=== PATIENT | male | born 1970 | race Caucasian/White ===

== ENCOUNTER 2021-07-13 13:54 | Outpatient (CLI) | payer BC ==
[2021-07-13 15:47] LABS: #Basophils 0.1 10x3/uL (0.0-0.2); #Eosinphils 0.2 10x3/uL (0.0-0.5); #Monocytes 0.5 10x3/uL (0.0-1.1); #Neutrophils 2.7 10x3/uL (1.5-8.4); %Basophils 1.3 % (0.0-2.0); %Lymphocytes 34.9 % (18.0-47.0); %Monocytes 9.2 % (0.0-10.0); %Neutrophils 50.2 % (40.0-75.0); Hemoglobin 14.4 g/dL (13.5-17.5); Mean Corpuscular HGB CONC 32.2 g/dL (32.0-36.0); Mean Corpuscular Hemoglobin 28.5 pg (27.0-33.0); Mean Corpuscular Volume 88.3 fl (81.2-95.1); Platelet Count 232 10x3/uL (150-450); RBC Distribution Width 12.8 % (11.5-14.5); Red Blood Cell (RBC) Count 5.06 10x6/uL (4.32-5.72); White Blood Cell (WBC) Count 5.5 10x3/uL (3.5-10.5)
[2021-07-13 16:16] LABS: INR-International Normal Ratio 0.9; Prothrombin Time 10.3 sec (9.5-12.1)
[2021-07-13 16:21] LABS: Anion Gap 17 mmol/L (10-20); BUN (Urea Nitrogen) 21 mg/dL (8.4-25.7); CRP (Inflammatory) 2.33 mg/dL (= or < 0.5); Calc. Creatinine Clearance 0 mL/min (70-130); Calcium 9.7 mg/dL (7.8-10.44); Carbon Dioxide 26 mmol/L (22-29); Chloride 99 mmol/L (98-107); Glucose 300 mg/dL (70-105); Potassium 4.6 mmol/L (3.5-5.1); Sodium 137 mmol/L (136-145)
[2021-07-13 22:29] LABS: SARS-CoV-2 PCR by NAA Not Detected (NotDetected)
== END 2021-07-13 13:55 | disposition home or self-care (01) ==
LOC: LABBT 13:54
PROVIDERS: ATTEND Orthopaedic Surgery
DX: Z01.818 Encounter for other preprocedural examination (principal); T84.53XA Infection and inflammatory reaction due to internal right knee prosthesis, initial encounter; Z20.822 Contact with and (suspected) exposure to COVID-19
CPT/HCPCS: 80048; 85025; 85610; 86140; 93005; 93010; U0003; U0005

== ENCOUNTER 2021-07-14 10:10 | Inpatient (IN) | payer BC ==
[2021-07-13 10:00] VITALS: BMI 40.0
[2021-07-14] MEDS ORDERED: Midazolam HCl 2 mg/2 ml Vial ONE ×2 (10:39→11:02)
[2021-07-14] MEDS ORDERED: Fentanyl 100 MCG/2 ML VIAL ONE ×6 (10:39→16:40)
[2021-07-14] MEDS ORDERED: Ondansetron PF 4 MG/2 ML Vial ONE ×2 (11:59→13:26)
[2021-07-14] MEDS ORDERED: Morphine 4 MG/ML VIAL ONE (11:59)
[2021-07-14] MEDS ORDERED: Heparin 1,000 UNITS/ML VIAL ONE (12:53)
[2021-07-14] MEDS ORDERED: Ondansetron PF 4 MG/2 ML Vial IVP PRN ×2 (12:54→14:15)
[2021-07-14] MEDS ORDERED: Acetaminophen 325 MG TAB PO PRN (12:54)
[2021-07-14] MEDS ORDERED: Fentanyl 100 MCG/2 ML VIAL SLOW IVP PRN (12:54)
[2021-07-14] MEDS ORDERED: HYDROcodone/Acetaminophen 10/325 mg Tablet PO PRN ×3 (12:54→14:15)
[2021-07-14] MEDS ORDERED: Zolpidem Tartrate 5 MG TAB PO PRN ×2 (12:54→14:15)
[2021-07-14] MEDS ORDERED: diphenhydrAMINE 25 MG CAP PO PRN (12:54)
[2021-07-14] MEDS ORDERED: Promethazine HCl 25 MG/ML VIAL IM PRN ×2 (12:54→14:15)
[2021-07-14] MEDS ORDERED: Nitroglycerin 0.4 MG TAB (25 Tab Bottle) SL PRN (13:00)
[2021-07-14] MEDS ORDERED: Senokot S 8.6-50 MG TAB PO PRN (13:00)
[2021-07-14] MEDS ORDERED: Tobramycin Sulfate 1.2 GM VIAL ONE (13:22)
[2021-07-14] MEDS ORDERED: Bupivacaine HCl 0.5%/Epinephrine 1:200,000/PF 30 ml Vial ONE (13:26)
[2021-07-14] MEDS ORDERED: Ketorolac Tromethamine 30 MG/ML VIAL ONE (13:26)
[2021-07-14] MEDS ORDERED: Dexamethasone 20 MG/5 ML VIAL ONE (13:26)
[2021-07-14] MEDS ORDERED: Lidocaine 1% PF 5 ML VIAL ONE (13:26)
[2021-07-14] MEDS ORDERED: diphenhydrAMINE 50 MG/ML VIAL ONE (13:26)
[2021-07-14] MEDS ORDERED: PROPOFOL 200 MG/20 ML VIAL ONE (13:26)
[2021-07-14] MEDS ORDERED: Bupivacaine PF 0.5% 30 ML VIAL ONE (13:58)
[2021-07-14] MEDS ORDERED: Mineral Oil Sterile 10 ML VIAL ONE (13:58)
[2021-07-14] MEDS ORDERED: Ketorolac Tromethamine 30 MG/ML VIAL IM SCH (14:00)
[2021-07-14] MEDS ORDERED: Ropivacaine HCl/PF 125 ML in Sodium Chloride 0.9% 125 ML NERVE BLCK SCH (14:15)
[2021-07-14] MEDS ORDERED: traMADol HCl 50 MG TAB PO PRN ×2 (14:15)
[2021-07-14] MEDS ORDERED: Ketorolac Tromethamine 30 MG/ML VIAL IVP PRN (14:15)
[2021-07-14] MEDS ORDERED: Ropivacaine HCl/PF 250 ML in Premix Bag 1 BAG NERVE BLCK SCH (14:15)
[2021-07-14] MEDS ORDERED: Meperidine HCl/PF 25 MG/ML VIAL SLOW IVP PRN (15:19)
[2021-07-14] MEDS ORDERED: Promethazine HCl 25 MG/ML VIAL IVPB PRN (15:19)
[2021-07-14] MEDS ORDERED: Ondansetron HCl/PF 4 MG/2 ML Vial IVP PRN (15:19)
[2021-07-14] MEDS ORDERED: HYDROmorphone 2 MG/ML VIAL SLOW IVP PRN (15:19)
[2021-07-14] MEDS ORDERED: Labetalol HCl 100 MG/20 ML VIAL ONE (15:54)
[2021-07-14] MEDS ORDERED: HYDROmorphone 2 MG/ML VIAL ONE (15:59)
[2021-07-14] MEDS: Rifampin 300 MG CAP PO SCH (21:06)
[2021-07-14] MEDS: Fentanyl 100 MCG/2 ML VIAL IV PRN (21:07)
[2021-07-14] MEDS: tiZANidine HCl 4 MG TAB PO PRN (21:07)
[2021-07-14] MEDS: HYDROcodone/Acetaminophen 10/325 mg Tablet PO PRN (21:08)
[2021-07-14] MEDS: Amlodipine 10 MG TAB PO SCH (21:09)
[2021-07-14] MEDS: ceFAZolin Sodium/D5W 2 GM in Premix Bag 1 BAG IVPB SCH (21:09)
[2021-07-14] MEDS: Rosuvastatin 20 MG TAB PO SCH (21:09)
[2021-07-14] MEDS: Aspirin 81 mg Enteric Coated Tablet PO SCH (21:09)
[2021-07-14] MEDS: Sodium Chloride 0.9% 1,000 ML IV SCH ×2 (23:10→23:11)
[2021-07-14] MEDS: metFORMIN 500 MG TAB PO SCH (23:11)
[2021-07-15] MEDS ORDERED: Vancomycin 1.5 GRAM/300 ML BAG 1.5 GM in Premix Bag 1 BAG IVPB SCH
[2021-07-15] MEDS ORDERED: Vancomycin HCl 1.5 GM in Sodium Chloride 0.9% 250 ML 300 ML IVPB SCH
[2021-07-15] MEDS: HYDROcodone/Acetaminophen 10/325 mg Tablet PO PRN ×2 (00:42→04:20)
[2021-07-15] MEDS: Fentanyl 100 MCG/2 ML VIAL IV PRN ×2 (00:58→03:55)
[2021-07-15] MEDS: Levothyroxine Sodium 112 MCG TAB PO SCH (04:20)
[2021-07-15] MEDS: Levothyroxine Sodium 25 MCG TAB PO SCH (04:20)
[2021-07-15] MEDS: tiZANidine HCl 4 MG TAB PO PRN (04:20)
[2021-07-15] MEDS: ceFAZolin Sodium/D5W 2 GM in Premix Bag 1 BAG IVPB SCH ×3 (04:29→20:56)
[2021-07-15] MEDS ORDERED: Morphine 4 MG/ML VIAL SLOW IVP SCH (04:30)
[2021-07-15 05:57] LABS: Hemoglobin 11.6 g/dL (14.0-18.0); Mean Corpuscular HGB CONC 33.4 g/dL (32.0-36.0); Mean Corpuscular Volume 89.9 fL (78.0-98.0); Mean Platelet Volume 7.8 fL (7.4-10.4); Platelet Count 149 thou/uL (130-400); RBC Distribution Width 12.9 % (11.5-14.5); Red Blood Cell (RBC) Count 3.85 mill/uL (4.70-6.10); White Blood Cell (WBC) Count 3.9 thou/uL (4.8-10.8)
[2021-07-15] MEDS ORDERED: Zolpidem Tartrate 5 MG TAB PO PRN (06:22)
[2021-07-15] MEDS ORDERED: diphenhydrAMINE 50 MG/ML VIAL IM PRN (06:22)
[2021-07-15] MEDS ORDERED: Promethazine HCl 25 MG/ML VIAL IM PRN (06:22)
[2021-07-15] MEDS ORDERED: Ondansetron PF 4 MG/2 ML Vial IVP PRN (06:22)
[2021-07-15] MEDS ORDERED: Morphine CADD 1 MG/ML CADD IVPB PRN (06:22)
[2021-07-15] MEDS ORDERED: Naloxone HCl 0.4 mg/ml Vial IV PRN (06:22)
[2021-07-15] MEDS ORDERED: diphenhydrAMINE 25 MG CAP PO PRN (06:22)
[2021-07-15] MEDS ORDERED: Communication Order-Pharmacy FS SCH (06:30)
[2021-07-15] MEDS ORDERED: Morphine Sulfate 100 MG in Dextrose 5% in Water 98 ML IV SCH (06:45)
[2021-07-15] MEDS ORDERED: Dextrose 50% Abboject 50 ML SYRINGE IVP PRN (07:00)
[2021-07-15] MEDS ORDERED: Dextrose 5% in Water 1,000 ML IV PRN ×2 (07:00→11:50)
[2021-07-15] MEDS: metFORMIN 500 MG TAB PO SCH ×2 (07:02→17:07)
[2021-07-15] MEDS: HumaLOG 300 UNITS/3 ML VIAL SC PRN ×2 (07:03→11:30)
[2021-07-15 08:11] LABS: Anion Gap 12 mmol/L (10-20); BUN (Urea Nitrogen) 14 mg/dL (8.4-25.7); CRP (Inflammatory) 6.19 mg/dL (= or < 0.5); Calc. Creatinine Clearance 183 mL/min (70-130); Calcium 8.6 mg/dL (7.8-10.44); Carbon Dioxide 27 mmol/L (22-29); Chloride 97 mmol/L (98-107); Glucose 350 mg/dL (70-105); Potassium 4.2 mmol/L (3.5-5.1); Sodium 132 mmol/L (136-145)
[2021-07-15] MEDS ORDERED: Aspirin 81 mg Enteric Coated Tablet PO SCH (09:00)
[2021-07-15] MEDS ORDERED: Venlafaxine HCl XR 150 MG CAP PO SCH (09:00)
[2021-07-15] MEDS ORDERED: oxyCODONE 5 MG TAB PO SCH (09:15)
[2021-07-15] MEDS: Atenolol 50 MG TAB PO SCH (10:44)
[2021-07-15] MEDS: Lisinopril 20 MG TAB PO SCH (10:47)
[2021-07-15] MEDS: Amlodipine 10 MG TAB PO SCH ×2 (10:47→20:58)
[2021-07-15] MEDS: Ferrous Gluconate 324 MG TAB PO SCH ×2 (10:48→20:56)
[2021-07-15] MEDS: Multivitamin W/ Minerals 1 TAB PO SCH (10:48)
[2021-07-15] MEDS: Glimepiride 4 MG TAB PO SCH (10:48)
[2021-07-15] MEDS: Venlafaxine HCl XR 150 MG CAP PO SCH (10:48)
[2021-07-15] MEDS: Aspirin 81 mg Enteric Coated Tablet PO SCH ×2 (10:48→20:56)
[2021-07-15] MEDS: Sodium Chloride 0.9% 1,000 ML IV SCH ×2 (10:49→20:57)
[2021-07-15] MEDS: Senokot S 8.6-50 MG TAB PO SCH ×2 (10:49→20:56)
[2021-07-15] MEDS: Rifampin 300 MG CAP PO SCH ×2 (11:29→20:56)
[2021-07-15] MEDS ORDERED: Dextrose 50% Abboject 50 ML SYRINGE SLOW IVP PRN (11:50)
[2021-07-15] MEDS: Ketorolac Tromethamine 30 MG/ML VIAL IVP SCH ×2 (17:07→20:55)
[2021-07-15] MEDS: Insulin Regular 300 UNITS/3 ML VIAL SC PRN ×2 (17:36→20:59)
[2021-07-15] MEDS: Rosuvastatin 20 MG TAB PO SCH (20:56)
[2021-07-16] MEDS: Ketorolac Tromethamine 30 MG/ML VIAL IVP SCH ×4 (03:36→21:15)
[2021-07-16] MEDS: tiZANidine HCl 4 MG TAB PO PRN (03:48)
[2021-07-16] MEDS: ceFAZolin Sodium/D5W 2 GM in Premix Bag 1 BAG IVPB SCH ×3 (05:20→21:18)
[2021-07-16 05:41] LABS: Hemoglobin 9.9 g/dL (14.0-18.0); Mean Corpuscular HGB CONC 33.5 g/dL (32.0-36.0); Mean Corpuscular Hemoglobin 30.1 pg (27.0-31.0); Mean Corpuscular Volume 89.8 fL (78.0-98.0); Platelet Count 141 thou/uL (130-400); RBC Distribution Width 12.7 % (11.5-14.5); White Blood Cell (WBC) Count 4.4 thou/uL (4.8-10.8)
[2021-07-16] MEDS: Sodium Chloride 0.9% 1,000 ML IV SCH ×2 (06:08→15:16)
[2021-07-16] MEDS: Levothyroxine Sodium 112 MCG TAB PO SCH (06:08)
[2021-07-16] MEDS: Levothyroxine Sodium 25 MCG TAB PO SCH (06:08)
[2021-07-16] MEDS: Insulin Regular 300 UNITS/3 ML VIAL SC PRN (06:36)
[2021-07-16] MEDS: diphenhydrAMINE 50 MG/ML VIAL IVP PRN (08:10)
[2021-07-16] MEDS: Aspirin 81 mg Enteric Coated Tablet PO SCH ×3 (09:23→21:17)
[2021-07-16] MEDS: Lisinopril 20 MG TAB PO SCH (09:23)
[2021-07-16] MEDS: Atenolol 50 MG TAB PO SCH (09:23)
[2021-07-16] MEDS: Amlodipine 10 MG TAB PO SCH ×2 (09:24→21:17)
[2021-07-16] MEDS: Ferrous Gluconate 324 MG TAB PO SCH ×2 (10:01→21:17)
[2021-07-16] MEDS: Multivitamin W/ Minerals 1 TAB PO SCH (10:01)
[2021-07-16] MEDS: Senokot S 8.6-50 MG TAB PO SCH ×2 (10:01→21:16)
[2021-07-16] MEDS: Rifampin 300 MG CAP PO SCH ×2 (12:09→22:37)
[2021-07-16] MEDS: Glimepiride 4 MG TAB PO SCH (12:09)
[2021-07-16] MEDS: metFORMIN 500 MG TAB PO SCH ×2 (12:09→16:03)
[2021-07-16] MEDS: Venlafaxine HCl XR 150 MG CAP PO SCH (12:09)
[2021-07-16] MEDS: oxyCODONE 5 MG TAB PO PRN ×3 (12:10→21:23)
[2021-07-16] MEDS: Lantus 1000 UNITS/10 ML VIAL SC SCH (21:17)
[2021-07-16] MEDS: Rosuvastatin 20 MG TAB PO SCH (21:17)
[2021-07-17] MEDS: Sodium Chloride 0.9% 1,000 ML IV SCH ×3 (01:25→21:56)
[2021-07-17] MEDS: ceFAZolin Sodium/D5W 2 GM in Premix Bag 1 BAG IVPB SCH ×3 (05:04→20:40)
[2021-07-17] MEDS: Ketorolac Tromethamine 30 MG/ML VIAL IVP SCH ×4 (05:04→21:56)
[2021-07-17 05:07] LABS: Hemoglobin 10.8 g/dL (14.0-18.0); Mean Corpuscular HGB CONC 34.1 g/dL (32.0-36.0); Mean Corpuscular Volume 88.1 fL (78.0-98.0); Mean Platelet Volume 8.5 fL (7.4-10.4); Platelet Count 134 thou/uL (130-400); RBC Distribution Width 12.6 % (11.5-14.5); Red Blood Cell (RBC) Count 3.58 mill/uL (4.70-6.10); White Blood Cell (WBC) Count 4.6 thou/uL (4.8-10.8)
[2021-07-17] MEDS: Levothyroxine Sodium 25 MCG TAB PO SCH (05:22)
[2021-07-17] MEDS: Levothyroxine Sodium 112 MCG TAB PO SCH (05:22)
[2021-07-17] MEDS: diphenhydrAMINE 50 MG/ML VIAL IVP PRN (08:25)
[2021-07-17] MEDS: Glimepiride 4 MG TAB PO SCH (08:30)
[2021-07-17] MEDS: Senokot S 8.6-50 MG TAB PO SCH ×2 (08:30→20:40)
[2021-07-17] MEDS: Rifampin 300 MG CAP PO SCH ×2 (08:30→20:39)
[2021-07-17] MEDS: Aspirin 81 mg Enteric Coated Tablet PO SCH ×2 (08:30→20:39)
[2021-07-17] MEDS: metFORMIN 500 MG TAB PO SCH ×2 (08:31→18:13)
[2021-07-17] MEDS: Atenolol 50 MG TAB PO SCH (08:31)
[2021-07-17] MEDS: Venlafaxine HCl XR 150 MG CAP PO SCH (08:32)
[2021-07-17] MEDS: Amlodipine 10 MG TAB PO SCH ×2 (08:32→20:39)
[2021-07-17] MEDS: Ferrous Gluconate 324 MG TAB PO SCH ×2 (08:32→20:39)
[2021-07-17] MEDS: Lisinopril 20 MG TAB PO SCH (08:32)
[2021-07-17] MEDS: Multivitamin W/ Minerals 1 TAB PO SCH (08:32)
[2021-07-17] MEDS: oxyCODONE 5 MG TAB PO PRN ×2 (14:16→21:55)
[2021-07-17] MEDS ORDERED: Ropivacaine HCl/PF 250 ML in Premix Bag 1 BAG NERVE BLCK SCH (15:15)
[2021-07-17] MEDS ORDERED: Ropivacaine HCl/PF 125 ML in Sodium Chloride 0.9% 125 ML NERVE BLCK SCH (15:15)
[2021-07-17] MEDS: tiZANidine HCl 4 MG TAB PO PRN (15:15)
[2021-07-17] MEDS: Insulin Regular 300 UNITS/3 ML VIAL SC PRN (18:13)
[2021-07-17] MEDS: Rosuvastatin 20 MG TAB PO SCH (20:40)
[2021-07-17] MEDS: Lantus 1000 UNITS/10 ML VIAL SC SCH (20:41)
[2021-07-18] MEDS: ceFAZolin Sodium/D5W 2 GM in Premix Bag 1 BAG IVPB SCH ×3 (04:54→21:16)
[2021-07-18] MEDS: Ketorolac Tromethamine 30 MG/ML VIAL IVP SCH ×4 (04:54→21:11)
[2021-07-18] MEDS: oxyCODONE 5 MG TAB PO PRN ×5 (04:55→21:14)
[2021-07-18] MEDS: Levothyroxine Sodium 112 MCG TAB PO SCH (04:55)
[2021-07-18] MEDS: Levothyroxine Sodium 25 MCG TAB PO SCH (04:56)
[2021-07-18] MEDS: Insulin Regular 300 UNITS/3 ML VIAL SC PRN ×2 (06:07→13:40)
[2021-07-18] MEDS ORDERED: Polyethylene Glycol 3350 17 GM Packet PO PRN (07:45)
[2021-07-18] MEDS: Sodium Chloride 0.9% 1,000 ML IV SCH ×2 (08:41→18:46)
[2021-07-18] MEDS: Atenolol 50 MG TAB PO SCH (08:42)
[2021-07-18] MEDS: Aspirin 81 mg Enteric Coated Tablet PO SCH ×2 (08:43→21:13)
[2021-07-18] MEDS: Lisinopril 20 MG TAB PO SCH (08:43)
[2021-07-18] MEDS: metFORMIN 500 MG TAB PO SCH ×2 (08:43→16:59)
[2021-07-18] MEDS: Venlafaxine HCl XR 150 MG CAP PO SCH (08:43)
[2021-07-18] MEDS: Amlodipine 10 MG TAB PO SCH ×2 (08:44→21:13)
[2021-07-18] MEDS: Glimepiride 4 MG TAB PO SCH (08:44)
[2021-07-18] MEDS: Ferrous Gluconate 324 MG TAB PO SCH ×2 (08:44→21:12)
[2021-07-18] MEDS: Senokot S 8.6-50 MG TAB PO SCH ×2 (08:44→21:13)
[2021-07-18] MEDS: Multivitamin W/ Minerals 1 TAB PO SCH (08:44)
[2021-07-18] MEDS: Rifampin 300 MG CAP PO SCH ×2 (08:45→21:12)
[2021-07-18] MEDS: Lantus 1000 UNITS/10 ML VIAL SC SCH ×2 (08:47→21:10)
[2021-07-18] MEDS: Rosuvastatin 20 MG TAB PO SCH (21:12)
[2021-07-18] MEDS: Cepastat Lozenges 1 LOZ PO PRN (21:13)
[2021-07-19] MEDS: Levothyroxine Sodium 25 MCG TAB PO SCH (05:02)
[2021-07-19] MEDS: Levothyroxine Sodium 112 MCG TAB PO SCH (05:02)
[2021-07-19] MEDS: Ketorolac Tromethamine 30 MG/ML VIAL IVP SCH ×4 (05:02→20:28)
[2021-07-19] MEDS: ceFAZolin Sodium/D5W 2 GM in Premix Bag 1 BAG IVPB SCH ×3 (05:03→20:26)
[2021-07-19] MEDS: Cepastat Lozenges 1 LOZ PO PRN (05:39)
[2021-07-19] MEDS: oxyCODONE 5 MG TAB PO PRN ×4 (05:39→20:27)
[2021-07-19] MEDS: Sodium Chloride 0.9% 1,000 ML IV SCH ×2 (06:03→17:05)
[2021-07-19] MEDS: Rifampin 300 MG CAP PO SCH ×2 (08:49→20:26)
[2021-07-19] MEDS: Lantus 1000 UNITS/10 ML VIAL SC SCH ×2 (08:50→20:26)
[2021-07-19] MEDS: Glimepiride 4 MG TAB PO SCH (08:50)
[2021-07-19] MEDS: metFORMIN 500 MG TAB PO SCH ×2 (08:50→16:11)
[2021-07-19] MEDS: Ferrous Gluconate 324 MG TAB PO SCH ×2 (08:51→20:27)
[2021-07-19] MEDS: Lisinopril 20 MG TAB PO SCH (08:51)
[2021-07-19] MEDS: Venlafaxine HCl XR 150 MG CAP PO SCH (08:52)
[2021-07-19] MEDS: Amlodipine 10 MG TAB PO SCH ×2 (08:52→20:28)
[2021-07-19] MEDS: Atenolol 50 MG TAB PO SCH (08:57)
[2021-07-19] MEDS: Aspirin 81 mg Enteric Coated Tablet PO SCH (08:58)
[2021-07-19] MEDS: Senokot S 8.6-50 MG TAB PO SCH ×2 (08:58→20:27)
[2021-07-19] MEDS: Multivitamin W/ Minerals 1 TAB PO SCH (08:58)
[2021-07-19] MEDS ORDERED: Clopidogrel Bisulfate 75 MG TAB PO SCH (11:30)
[2021-07-19] MEDS: Insulin Regular 300 UNITS/3 ML VIAL SC PRN (12:26)
[2021-07-19] MEDS: Rosuvastatin 20 MG TAB PO SCH (20:27)
[2021-07-20] MEDS: oxyCODONE 5 MG TAB PO PRN ×3 (00:10→10:05)
[2021-07-20] MEDS: Sodium Chloride 0.9% 1,000 ML IV SCH ×3 (01:32→20:33)
[2021-07-20] MEDS: ceFAZolin Sodium/D5W 2 GM in Premix Bag 1 BAG IVPB SCH ×3 (04:09→20:31)
[2021-07-20] MEDS: Levothyroxine Sodium 25 MCG TAB PO SCH (04:09)
[2021-07-20] MEDS: Levothyroxine Sodium 112 MCG TAB PO SCH (04:09)
[2021-07-20] MEDS: Ketorolac Tromethamine 30 MG/ML VIAL IVP SCH ×2 (04:09→10:07)
[2021-07-20] MEDS: Insulin Regular 300 UNITS/3 ML VIAL SC PRN ×2 (06:25→12:22)
[2021-07-20] MEDS: metFORMIN 500 MG TAB PO SCH ×2 (08:57→18:04)
[2021-07-20] MEDS: Glimepiride 4 MG TAB PO SCH (08:57)
[2021-07-20] MEDS: Ferrous Gluconate 324 MG TAB PO SCH ×2 (10:01→20:32)
[2021-07-20] MEDS: Aspirin 81 mg Enteric Coated Tablet PO SCH (10:01)
[2021-07-20] MEDS: Multivitamin W/ Minerals 1 TAB PO SCH (10:01)
[2021-07-20] MEDS: Lisinopril 20 MG TAB PO SCH (10:02)
[2021-07-20] MEDS: Venlafaxine HCl XR 150 MG CAP PO SCH (10:02)
[2021-07-20] MEDS: Clopidogrel Bisulfate 75 MG TAB PO SCH (10:03)
[2021-07-20] MEDS: Atenolol 50 MG TAB PO SCH (10:03)
[2021-07-20] MEDS: Amlodipine 10 MG TAB PO SCH ×2 (10:03→20:32)
[2021-07-20] MEDS: Lantus 1000 UNITS/10 ML VIAL SC SCH ×2 (10:04→20:34)
[2021-07-20] MEDS: Rifampin 300 MG CAP PO SCH ×2 (10:04→21:43)
[2021-07-20] MEDS: Senokot S 8.6-50 MG TAB PO SCH ×2 (10:12→20:32)
[2021-07-20] MEDS ORDERED: HYDROmorphone 2 MG TAB PO PRN ×2 (12:23→12:24)
[2021-07-20] MEDS: HYDROcodone/Acetaminophen 10/325 mg Tablet PO SCH ×2 (12:32→17:59)
[2021-07-20] MEDS: Rosuvastatin 20 MG TAB PO SCH (20:32)
[2021-07-20] MEDS: Polyethylene Glycol 3350 17 GM Packet PO SCH (20:34)
[2021-07-21] MEDS: HYDROcodone/Acetaminophen 10/325 mg Tablet PO SCH ×4 (00:13→18:14)
[2021-07-21] MEDS: oxyCODONE 5 MG TAB PO PRN ×2 (03:39→21:07)
[2021-07-21] MEDS: ceFAZolin Sodium/D5W 2 GM in Premix Bag 1 BAG IVPB SCH ×3 (05:04→21:04)
[2021-07-21] MEDS: Levothyroxine Sodium 25 MCG TAB PO SCH (05:04)
[2021-07-21] MEDS: Levothyroxine Sodium 112 MCG TAB PO SCH (05:04)
[2021-07-21] MEDS: Insulin Regular 300 UNITS/3 ML VIAL SC PRN ×2 (05:13→11:21)
[2021-07-21] MEDS: Sodium Chloride 0.9% 1,000 ML IV SCH ×2 (05:26→14:59)
[2021-07-21] MEDS: Glimepiride 4 MG TAB PO SCH (09:13)
[2021-07-21] MEDS: Lisinopril 20 MG TAB PO SCH (09:14)
[2021-07-21] MEDS: Clopidogrel Bisulfate 75 MG TAB PO SCH (09:14)
[2021-07-21] MEDS: metFORMIN 500 MG TAB PO SCH ×2 (09:15→18:15)
[2021-07-21] MEDS: Venlafaxine HCl XR 150 MG CAP PO SCH (09:16)
[2021-07-21] MEDS: Atenolol 50 MG TAB PO SCH (09:17)
[2021-07-21] MEDS: Multivitamin W/ Minerals 1 TAB PO SCH (09:17)
[2021-07-21] MEDS: Ferrous Gluconate 324 MG TAB PO SCH ×2 (09:18→21:05)
[2021-07-21] MEDS: Aspirin 81 mg Enteric Coated Tablet PO SCH (09:19)
[2021-07-21] MEDS: Amlodipine 10 MG TAB PO SCH ×2 (09:19→21:06)
[2021-07-21] MEDS: Rifampin 300 MG CAP PO SCH ×2 (11:15→21:04)
[2021-07-21] MEDS: Lantus 1000 UNITS/10 ML VIAL SC SCH ×2 (11:15→21:05)
[2021-07-21] MEDS: Senokot S 8.6-50 MG TAB PO SCH ×2 (12:33→21:05)
[2021-07-21] MEDS ORDERED: HYDROmorphone 2 MG TAB PO PRN (13:54)
[2021-07-21] MEDS: Rosuvastatin 20 MG TAB PO SCH (21:05)
[2021-07-21] MEDS: Polyethylene Glycol 3350 17 GM Packet PO SCH (22:01)
[2021-07-22] MEDS: HYDROcodone/Acetaminophen 10/325 mg Tablet PO SCH ×3 (00:19→12:45)
[2021-07-22] MEDS: Sodium Chloride 0.9% 1,000 ML IV SCH ×2 (02:12→10:49)
[2021-07-22] MEDS: ceFAZolin Sodium/D5W 2 GM in Premix Bag 1 BAG IVPB SCH ×2 (05:12→12:45)
[2021-07-22] MEDS: Levothyroxine Sodium 25 MCG TAB PO SCH (05:13)
[2021-07-22] MEDS: Levothyroxine Sodium 112 MCG TAB PO SCH (05:13)
[2021-07-22] MEDS: Insulin Regular 300 UNITS/3 ML VIAL SC PRN ×2 (06:02→13:51)
[2021-07-22] MEDS ORDERED: oxyCODONE/Acetaminophen 5 mg/325 mg Tablet PO PRN (08:31)
[2021-07-22] MEDS: Atenolol 50 MG TAB PO SCH (09:52)
[2021-07-22] MEDS: Amlodipine 10 MG TAB PO SCH (09:52)
[2021-07-22] MEDS: Multivitamin W/ Minerals 1 TAB PO SCH (09:52)
[2021-07-22] MEDS: Clopidogrel Bisulfate 75 MG TAB PO SCH (09:52)
[2021-07-22] MEDS: Glimepiride 4 MG TAB PO SCH (09:52)
[2021-07-22] MEDS: Aspirin 81 mg Enteric Coated Tablet PO SCH (09:52)
[2021-07-22] MEDS: metFORMIN 500 MG TAB PO SCH (09:53)
[2021-07-22] MEDS: Senokot S 8.6-50 MG TAB PO SCH (09:53)
[2021-07-22] MEDS: Lisinopril 20 MG TAB PO SCH (09:53)
[2021-07-22] MEDS: Ferrous Gluconate 324 MG TAB PO SCH (09:53)
[2021-07-22] MEDS: Rifampin 300 MG CAP PO SCH (09:54)
[2021-07-22] MEDS: Venlafaxine HCl XR 150 MG CAP PO SCH (09:54)
[2021-07-22] MEDS: Lantus 1000 UNITS/10 ML VIAL SC SCH (09:57)
[2021-07-22 14:24] VITALS: BP 144/84; TEMP 99
== END 2021-07-22 14:17 | disposition home or self-care (01) | DRG 467 ==
LOC: SDC 10:10 → SURG A 12:54 → SDC 07-15 02:39 → SURG A 07-15 02:39
PROVIDERS: ADMIT Orthopaedic Surgery; ATTEND Orthopaedic Surgery
PROC: 0SPC0JZ Removal of Synthetic Substitute from Right Knee Joint, Open Approach (ICD-10-PCS; principal; 2021-07-14)
PROC: 0SRC0J9 Replacement of Right Knee Joint with Synthetic Substitute, Cemented, Open Approach (ICD-10-PCS; 2021-07-14)
PROC: 02H633Z Insertion of Infusion Device into Right Atrium, Percutaneous Approach (ICD-10-PCS; 2021-07-16)
PROC: B5181ZA Fluoroscopy of Superior Vena Cava using Low Osmolar Contrast, Guidance (ICD-10-PCS; 2021-07-16)
PROC: B548ZZA Ultrasonography of Superior Vena Cava, Guidance (ICD-10-PCS; 2021-07-16)
DX: T84.53XA Infection and inflammatory reaction due to internal right knee prosthesis, initial encounter (principal); M00.9 Pyogenic arthritis, unspecified; Z68.41 Body mass index [BMI] 40.0-44.9, adult; E87.1 Hypo-osmolality and hyponatremia; I10 Essential (primary) hypertension; F41.9 Anxiety disorder, unspecified; I25.10 Atherosclerotic heart disease of native coronary artery without angina pectoris; G47.30 Sleep apnea, unspecified; E78.5 Hyperlipidemia, unspecified; B95.61 Methicillin susceptible Staphylococcus aureus infection as the cause of diseases classified elsewhere; E11.65 Type 2 diabetes mellitus with hyperglycemia; G89.29 Other chronic pain; E66.9 Obesity, unspecified; E03.9 Hypothyroidism, unspecified; Z79.84 Long term (current) use of oral hypoglycemic drugs; Z79.890 Hormone replacement therapy; Z98.42 Cataract extraction status, left eye; Z98.41 Cataract extraction status, right eye; Z95.5 Presence of coronary angioplasty implant and graft; Z79.82 Long term (current) use of aspirin; Z79.02 Long term (current) use of antithrombotics/antiplatelets; I25.2 Old myocardial infarction
CPT/HCPCS: 36415; 36416; 36569; 80048; 85025; 85027; 85610; 86140; 87070; 87205; 93005; C1713; C1751; J1100; J1170; J1200; J1644; J1815; J1885; J2250; J2270; J2274; J2405; J2704; J2795; J3010; J3260; J3370; J3490; J7050; J7070; S0020; U0003; U0005

== ENCOUNTER 2021-09-16 15:01 | Outpatient (CLI) | payer BC | END 2021-09-16 15:02 | disposition home or self-care (01) | LOC: BICULT 15:01 | PROVIDERS: ATTEND Internal Medicine Infectious Disease | DX: R22.41 Localized swelling, mass and lump, right lower limb (principal) ==

== ENCOUNTER 2021-09-21 15:45 | Outpatient (CLI) | payer BC ==
[2021-09-21 17:00] LABS: Hemoglobin 13.8 g/dL (13.5-17.5); Mean Corpuscular Hemoglobin 28.6 pg (27.0-33.0); Mean Corpuscular Volume 89.2 fl (81.2-95.1); Mean Platelet Volume 11.5 fl (7.4-10.4); Platelet Count 190 10x3/uL (150-450); RBC Distribution Width 14.4 % (11.5-14.5); Red Blood Cell (RBC) Count 4.83 10x6/uL (4.32-5.72); White Blood Cell (WBC) Count 3.6 10x3/uL (3.5-10.5)
[2021-09-21 17:23] LABS: MDiff Complete? YES
[2021-09-21 17:28] LABS: Anion Gap 18 mmol/L (10-20); BUN (Urea Nitrogen) 16 mg/dL (8.4-25.7); Calc. Creatinine Clearance 0 mL/min (70-130); Calcium 9.7 mg/dL (7.8-10.44); Carbon Dioxide 27 mmol/L (22-29); Chloride 101 mmol/L (98-107); Glucose 133 mg/dL (70-105); Potassium 4.6 mmol/L (3.5-5.1); Sodium 141 mmol/L (136-145)
[2021-09-21 17:34] LABS: Eosinophils 8 % (0-10); Lymphocytes 49 % (21-51); Monocytes 16 % (0-10); Neutrophil 27 % (42-75)
[2021-09-21 17:36] LABS: Platelet Morphology Comment Appears Adequate
[2021-09-22 13:24] LABS: SARS-CoV-2 PCR by NAA DETECTED (NotDetected)
== END 2021-09-21 15:46 | disposition home or self-care (01) ==
LOC: LABBT 15:45
PROVIDERS: ATTEND Orthopaedic Surgery
DX: T84.53XA Infection and inflammatory reaction due to internal right knee prosthesis, initial encounter (principal); U07.1 COVID-19
CPT/HCPCS: 80048; 85025; U0003; U0005

== ENCOUNTER 2021-11-20 12:16 | Outpatient (CLI) | payer BC ==
[2021-11-21 12:30] LABS: SARS-CoV-2 PCR by NAA Not Detected (NotDetected)
== END 2021-11-20 12:17 | disposition home or self-care (01) ==
LOC: LABBT 12:16
PROVIDERS: ATTEND Orthopaedic Surgery
DX: M00.9 Pyogenic arthritis, unspecified (principal); Z20.822 Contact with and (suspected) exposure to COVID-19
CPT/HCPCS: U0003; U0005

== ENCOUNTER 2021-11-20 15:30 | Inpatient (IN) | payer BC ==
[2021-11-23] MEDS ORDERED: Tranexamic Acid 1,000 MG/10 ML VIAL ONE (09:20)
[2021-11-23] MEDS ORDERED: Sodium Chloride 0.9% 100 ML ONE (09:20)
[2021-11-23] MEDS ORDERED: Ondansetron HCl/PF 4 MG/2 ML Vial IVP PRN (09:29)
[2021-11-23] MEDS ORDERED: Promethazine HCl 25 MG/ML VIAL IVPB PRN (09:29)
[2021-11-23] MEDS ORDERED: Promethazine HCl 25 MG/ML VIAL IM PRN ×3 (09:29→12:42)
[2021-11-23] MEDS ORDERED: Midazolam HCl 2 mg/2 ml Vial ONE (09:34)
[2021-11-23] MEDS ORDERED: Fentanyl 100 MCG/2 ML VIAL ONE (09:34)
[2021-11-23] MEDS ORDERED: Vancomycin 1.5 GRAM/300 ML BAG 1.5 GM in Premix Bag 1 BAG IVPB SCH (09:45)
[2021-11-23] MEDS ORDERED: ceFAZolin (BATCH) 2 GM/100 ML BAG ONE (10:18)
[2021-11-23] MEDS ORDERED: fentaNYL Citrate/PF 100 MCG/2 ML SYRINGE ONE (10:23)
[2021-11-23] MEDS ORDERED: oxyCODONE 5 MG TAB PO PRN ×2 (10:24→12:34)
[2021-11-23] MEDS ORDERED: Bupivacaine HCl 0.5%/Epinephrine 1:200,000/PF 30 ml Vial ONE (10:24)
[2021-11-23] MEDS ORDERED: PROPOFOL 200 MG/20 ML VIAL ONE (10:24)
[2021-11-23] MEDS ORDERED: Ketorolac Tromethamine 30 MG/ML VIAL ONE (10:24)
[2021-11-23] MEDS ORDERED: Nitroglycerin 0.4 MG TAB (25 Tab Bottle) SL PRN (10:25)
[2021-11-23] MEDS ORDERED: traZODone HCl 50 MG TAB PO PRN ×2 (10:25→10:50)
[2021-11-23] MEDS ORDERED: Non-Formulary Item 1 EACH (Tizanidine Hcl [Tizanidine Hcl] 4 MG Capsule) PO PRN (10:25)
[2021-11-23] MEDS ORDERED: tiZANidine HCl 4 MG TAB PO PRN (10:49)
[2021-11-23] MEDS ORDERED: diphenhydrAMINE 50 MG/ML VIAL IM PRN ×2 (12:28→12:42)
[2021-11-23] MEDS ORDERED: diphenhydrAMINE 25 MG CAP PO PRN ×2 (12:28→12:42)
[2021-11-23] MEDS ORDERED: Ondansetron PF 4 MG/2 ML Vial IVP PRN ×2 (12:28→12:42)
[2021-11-23] MEDS ORDERED: fentaNYL Citrate/PF 2,000 MCG in Sodium Chloride 0.9% 60 ML IV PRN ×2 (12:28→12:44)
[2021-11-23] MEDS ORDERED: Naloxone HCl 0.4 mg/ml Vial IV PRN ×2 (12:28→12:42)
[2021-11-23] MEDS ORDERED: diphenhydrAMINE 50 MG/ML VIAL IVP PRN ×2 (12:28→12:42)
[2021-11-23] MEDS ORDERED: Zolpidem Tartrate 5 MG TAB PO PRN ×2 (12:28→12:42)
[2021-11-23] MEDS ORDERED: Communication Order-Pharmacy FS SCH (12:30)
[2021-11-23 15:00] VITALS: BMI 39.9
[2021-11-23] MEDS ORDERED: Dextrose 5% in Water 1,000 ML IV PRN (16:04)
[2021-11-23] MEDS ORDERED: Dextrose 50% Abboject 50 ML SYRINGE SLOW IVP PRN (16:04)
[2021-11-23] MEDS ORDERED: HumaLOG 300 UNITS/3 ML VIAL SC PRN ×2 (16:05)
[2021-11-23] MEDS: Meropenem 1 GM in Sodium Chloride 0.9% 100 ML IVPB SCH ×2 (16:05→22:22)
[2021-11-23] MEDS: Gabapentin 300 MG CAP PO SCH ×2 (16:53→20:33)
[2021-11-23] MEDS: Communication Order-Pharmacy FS SCH (16:55)
[2021-11-23] MEDS: DAPTOmycin 500 MG in Sodium Chloride 0.9% 100 ML IVPB SCH (16:58)
[2021-11-23] MEDS: Ketorolac Tromethamine 30 MG/ML VIAL IVP SCH (18:14)
[2021-11-23] MEDS: Amlodipine 10 MG TAB PO SCH (20:32)
[2021-11-23] MEDS: metFORMIN XR 500 MG TAB PO SCH (20:33)
[2021-11-24] MEDS: Ketorolac Tromethamine 30 MG/ML VIAL IVP SCH ×5 (00:35→23:05)
[2021-11-24] MEDS: Cepastat Lozenges 1 LOZ PO PRN ×2 (04:05→23:13)
[2021-11-24] MEDS: Meropenem 1 GM in Sodium Chloride 0.9% 100 ML IVPB SCH ×3 (05:26→23:04)
[2021-11-24] MEDS: Levothyroxine Sodium 25 MCG TAB PO SCH (05:27)
[2021-11-24] MEDS: Levothyroxine Sodium 112 MCG TAB PO SCH (05:27)
[2021-11-24 05:43] LABS: #Eosinphils 0.2 thou/uL (0.0-0.7); #Lymphocytes 1.1 thou/uL (1.20-3.40); #Monocytes 0.5 thou/uL (0.11-0.59); #Neutrophils 3.8 thou/uL (1.40-6.50); %Basophils 0.5 % (0.0-1.0); %Lymphocytes 19.7 % (21.0-51.0); %Monocytes 9.5 % (0.0-10.0); %Neutrophils 67.3 % (42.0-75.0); Hemoglobin 10.8 g/dL (14.0-18.0); Mean Corpuscular Hemoglobin 30.1 pg (27.0-31.0); Mean Corpuscular Volume 91.1 fL (78.0-98.0); Mean Platelet Volume 8.3 fL (7.4-10.4); Platelet Count 169 thou/uL (130-400); RBC Distribution Width 13.1 % (11.5-14.5); White Blood Cell (WBC) Count 5.7 thou/uL (4.8-10.8)
[2021-11-24 06:01] LABS: Anion Gap 14 mmol/L (10-20); BUN (Urea Nitrogen) 13 mg/dL (8.4-25.7); Calc. Creatinine Clearance 198 mL/min (70-130); Calcium 8.4 mg/dL (7.8-10.44); Carbon Dioxide 25 mmol/L (22-29); Chloride 100 mmol/L (98-107); Glucose 204 mg/dL (70-105); Potassium 4.6 mmol/L (3.5-5.1); Sodium 134 mmol/L (136-145)
[2021-11-24] MEDS: metFORMIN XR 500 MG TAB PO SCH ×2 (08:35→20:45)
[2021-11-24] MEDS: Aripiprazole 2 MG TAB PO SCH (08:35)
[2021-11-24] MEDS: Enoxaparin Sodium 40 MG/0.4 ML SYRINGE SC SCH (08:35)
[2021-11-24] MEDS: Atenolol 50 MG TAB PO SCH (08:36)
[2021-11-24] MEDS: Aspirin 81 mg Enteric Coated Tablet PO SCH (08:36)
[2021-11-24] MEDS: Rosuvastatin 20 MG TAB PO SCH (08:36)
[2021-11-24] MEDS: Venlafaxine HCl XR 75 MG CAP PO SCH (08:36)
[2021-11-24] MEDS: Amlodipine 10 MG TAB PO SCH ×2 (08:37→22:00)
[2021-11-24] MEDS: Glimepiride 4 MG TAB PO SCH (08:37)
[2021-11-24] MEDS: Gabapentin 300 MG CAP PO SCH ×3 (08:37→20:46)
[2021-11-24] MEDS: Lisinopril 20 MG TAB PO SCH (08:39)
[2021-11-24] MEDS ORDERED: Venlafaxine HCl XR 150 MG CAP PO SCH (09:00)
[2021-11-24] MEDS ORDERED: Non-Formulary Item 1 EACH (Levothyroxine Sodium [Levothyroxine] 137 MCG Capsule) PO SCH (09:00)
[2021-11-24] MEDS ORDERED: Non-Formulary Item 1 EACH (Lisinopril [Lisinopril] 40 MG Tablet) PO SCH (09:00)
[2021-11-24] MEDS ORDERED: Non-Formulary Item 1 EACH (Atenolol [Atenolol] 100 MG Tablet) PO SCH (09:00)
[2021-11-24] MEDS ORDERED: Docusate 100 MG CAP PO PRN (11:20)
[2021-11-24] MEDS ORDERED: Polyethylene Glycol 3350 17 GM Packet PO PRN (11:20)
[2021-11-24] MEDS: DAPTOmycin 500 MG in Sodium Chloride 0.9% 100 ML IVPB SCH (12:08)
[2021-11-24] MEDS: Communication Order-Pharmacy FS SCH (14:40)
[2021-11-24] MEDS: Acetaminophen 325 MG TAB PO SCH ×2 (18:15→23:04)
[2021-11-25 05:39] LABS: Hemoglobin 10.5 g/dL (14.0-18.0); Mean Corpuscular Hemoglobin 30.5 pg (27.0-31.0); Mean Corpuscular Volume 92.4 fL (78.0-98.0); Mean Platelet Volume 8.2 fL (7.4-10.4); Platelet Count 143 thou/uL (130-400); RBC Distribution Width 12.9 % (11.5-14.5); Red Blood Cell (RBC) Count 3.43 mill/uL (4.70-6.10); White Blood Cell (WBC) Count 3.4 thou/uL (4.8-10.8)
[2021-11-25] MEDS: Meropenem 1 GM in Sodium Chloride 0.9% 100 ML IVPB SCH ×3 (06:19→21:47)
[2021-11-25] MEDS: Levothyroxine Sodium 112 MCG TAB PO SCH (06:20)
[2021-11-25] MEDS: Levothyroxine Sodium 25 MCG TAB PO SCH (06:20)
[2021-11-25] MEDS: Ketorolac Tromethamine 30 MG/ML VIAL IVP SCH ×3 (07:38→18:12)
[2021-11-25] MEDS: Acetaminophen 325 MG TAB PO SCH ×3 (07:38→18:12)
[2021-11-25] MEDS: Gabapentin 300 MG CAP PO SCH ×3 (08:52→21:45)
[2021-11-25] MEDS: Enoxaparin Sodium 40 MG/0.4 ML SYRINGE SC SCH (08:52)
[2021-11-25] MEDS: Rosuvastatin 20 MG TAB PO SCH (08:53)
[2021-11-25] MEDS: Glimepiride 4 MG TAB PO SCH (08:53)
[2021-11-25] MEDS: metFORMIN XR 500 MG TAB PO SCH ×2 (08:53→21:45)
[2021-11-25] MEDS: Venlafaxine HCl XR 75 MG CAP PO SCH (08:53)
[2021-11-25] MEDS: Aspirin 81 mg Enteric Coated Tablet PO SCH (08:53)
[2021-11-25] MEDS: Amlodipine 10 MG TAB PO SCH ×2 (08:54→21:46)
[2021-11-25] MEDS: Lisinopril 20 MG TAB PO SCH ×2 (08:55→09:00)
[2021-11-25] MEDS: Atenolol 50 MG TAB PO SCH (08:55)
[2021-11-25] MEDS: Aripiprazole 2 MG TAB PO SCH (08:56)
[2021-11-25] MEDS ORDERED: oxyCODONE 5 MG TAB PO PRN (10:13)
[2021-11-25] MEDS: DAPTOmycin 500 MG in Sodium Chloride 0.9% 100 ML IVPB SCH (13:19)
[2021-11-25] MEDS: Communication Order-Pharmacy FS SCH (14:44)
[2021-11-26] MEDS: Acetaminophen 325 MG TAB PO SCH ×3 (00:09→11:22)
[2021-11-26] MEDS: Meropenem 1 GM in Sodium Chloride 0.9% 100 ML IVPB SCH (05:38)
[2021-11-26] MEDS: Levothyroxine Sodium 112 MCG TAB PO SCH (05:38)
[2021-11-26] MEDS: Levothyroxine Sodium 25 MCG TAB PO SCH (05:38)
[2021-11-26 06:33] LABS: Anion Gap 8 mmol/L (10-20); BUN (Urea Nitrogen) 9 mg/dL (8.4-25.7); Calc. Creatinine Clearance 221 mL/min (70-130); Calcium 9.1 mg/dL (7.8-10.44); Carbon Dioxide 36 mmol/L (22-29); Chloride 101 mmol/L (98-107); Glucose 116 mg/dL (70-105); Potassium 4.6 mmol/L (3.5-5.1); Sodium 140 mmol/L (136-145)
[2021-11-26 06:34] LABS: Hemoglobin 11.4 g/dL (14.0-18.0); Mean Corpuscular HGB CONC 34.1 g/dL (32.0-36.0); Mean Corpuscular Hemoglobin 31.6 pg (27.0-31.0); Mean Corpuscular Volume 92.7 fL (78.0-98.0); Mean Platelet Volume 8.2 fL (7.4-10.4); Platelet Count 163 thou/uL (130-400); RBC Distribution Width 12.9 % (11.5-14.5); Red Blood Cell (RBC) Count 3.59 mill/uL (4.70-6.10); White Blood Cell (WBC) Count 3.3 thou/uL (4.8-10.8)
[2021-11-26 08:36] LABS: Band 1 % (5-11); Eosinophils 6 % (0-10); Lymphocytes 40 % (21-51); MDiff Complete? YES; Monocytes 10 % (0-10); Neutrophil 43 % (42-75); Platelet Morphology Comment Appears Adequate; RBC Morphology Normal
[2021-11-26] MEDS: Lisinopril 20 MG TAB PO SCH (09:02)
[2021-11-26] MEDS: metFORMIN XR 500 MG TAB PO SCH (09:02)
[2021-11-26] MEDS: Aripiprazole 2 MG TAB PO SCH (09:02)
[2021-11-26] MEDS: Atenolol 50 MG TAB PO SCH (09:02)
[2021-11-26] MEDS: Gabapentin 300 MG CAP PO SCH (09:02)
[2021-11-26] MEDS: Aspirin 81 mg Enteric Coated Tablet PO SCH (09:03)
[2021-11-26] MEDS: Enoxaparin Sodium 40 MG/0.4 ML SYRINGE SC SCH (09:03)
[2021-11-26] MEDS: Amlodipine 10 MG TAB PO SCH (09:03)
[2021-11-26] MEDS: Glimepiride 4 MG TAB PO SCH (09:03)
[2021-11-26] MEDS: Venlafaxine HCl XR 75 MG CAP PO SCH (10:41)
[2021-11-26] MEDS: Rosuvastatin 20 MG TAB PO SCH (10:42)
[2021-11-26] MEDS ORDERED: Morphine 4 MG/ML VIAL ONE (10:46)
[2021-11-26] MEDS ORDERED: Morphine 4 MG/ML VIAL SLOW IVP SCH (11:15)
[2021-11-26] MEDS: DAPTOmycin 500 MG in Sodium Chloride 0.9% 100 ML IVPB SCH (11:21)
[2021-11-26 12:23] VITALS: BP 112/76; TEMP 98.4
== END 2021-11-26 13:38 | disposition home or self-care (01) | DRG 476 ==
LOC: SURG A 11-23 08:46
PROVIDERS: ADMIT Orthopaedic Surgery; ATTEND Orthopaedic Surgery
PROC: 0Y6C0Z1 Detachment at Right Upper Leg, High, Open Approach (ICD-10-PCS; principal; 2021-11-23)
DX: T84.53XA Infection and inflammatory reaction due to internal right knee prosthesis, initial encounter (principal); Z20.822 Contact with and (suspected) exposure to COVID-19; I10 Essential (primary) hypertension; I25.10 Atherosclerotic heart disease of native coronary artery without angina pectoris; F41.9 Anxiety disorder, unspecified; E11.40 Type 2 diabetes mellitus with diabetic neuropathy, unspecified; E66.9 Obesity, unspecified; E03.9 Hypothyroidism, unspecified; G89.29 Other chronic pain; E78.2 Mixed hyperlipidemia; M89.9 Disorder of bone, unspecified; B95.61 Methicillin susceptible Staphylococcus aureus infection as the cause of diseases classified elsewhere; E11.65 Type 2 diabetes mellitus with hyperglycemia; D64.9 Anemia, unspecified; T84.82XA Fibrosis due to internal orthopedic prosthetic devices, implants and grafts, initial encounter; Z96.651 Presence of right artificial knee joint; Y83.8 Other surgical procedures as the cause of abnormal reaction of the patient, or of later complication, without mention of misadventure at the time of the procedure; Z95.5 Presence of coronary angioplasty implant and graft; I25.2 Old myocardial infarction; Z98.52 Vasectomy status; Z68.39 Body mass index [BMI] 39.0-39.9, adult; Z79.890 Hormone replacement therapy; Z79.899 Other long term (current) drug therapy; Z79.84 Long term (current) use of oral hypoglycemic drugs; Z79.82 Long term (current) use of aspirin; Z79.01 Long term (current) use of anticoagulants
CPT/HCPCS: 36415; 36416; 80048; 85025; 85027; 87070; 87205; 88304; 88307; 88311; J0690; J0878; J1650; J1815; J1885; J2185; J2250; J2270; J2405; J2704; J3010; J3490

== ENCOUNTER 2021-12-04 17:38 | Inpatient (IN) | payer BC ==
[2021-12-04 19:44] VITALS: BMI 35.7
[2021-12-04] MEDS ORDERED: Ondansetron PF 4 MG/2 ML Vial IVP PRN (20:01)
[2021-12-04] MEDS ORDERED: CEFAZOLIN 2 GM in Sodium Chloride 0.9% 100 ML IVPB SCH (20:15)
[2021-12-04] MEDS ORDERED: Communication Order-Pharmacy FS SCH (20:15)
[2021-12-04] MEDS ORDERED: TETANUS AND DIPHTHERIA TOX/PF 0.5 ML DISP.SYRIN IM SCH (20:15)
[2021-12-04] MEDS: Morphine 4 MG/ML VIAL SLOW IVP PRN (20:44)
[2021-12-05 00:33] LABS: SARS-CoV-2 NAA Rapid Test Not Detected (NotDetected)
[2021-12-05] MEDS: Morphine 4 MG/ML VIAL SLOW IVP PRN ×3 (00:34→10:35)
[2021-12-05] MEDS ORDERED: CEFAZOLIN 2 GM VIAL ONE (12:39)
[2021-12-05] MEDS ORDERED: Sodium Chloride 0.9% 100 ML ONE (12:40)
[2021-12-05] MEDS ORDERED: Fentanyl 100 MCG/2 ML VIAL ONE ×2 (12:59→14:24)
[2021-12-05] MEDS ORDERED: Dexamethasone 20 MG/5 ML VIAL ONE (13:19)
[2021-12-05] MEDS ORDERED: ePHEDrine 50 MG/ML VIAL ONE (13:19)
[2021-12-05] MEDS ORDERED: Lidocaine 1% PF 5 ML VIAL ONE (13:19)
[2021-12-05] MEDS ORDERED: PROPOFOL 200 MG/20 ML VIAL ONE (13:19)
[2021-12-05] MEDS ORDERED: Ondansetron PF 4 MG/2 ML Vial ONE (13:19)
[2021-12-05] MEDS ORDERED: Promethazine HCl 25 MG/ML VIAL IVPB PRN (14:28)
[2021-12-05] MEDS ORDERED: Promethazine HCl 25 MG/ML VIAL IM PRN (14:28)
[2021-12-05] MEDS ORDERED: Ondansetron HCl/PF 4 MG/2 ML Vial IVP PRN (14:28)
[2021-12-05] MEDS: HYDROcodone/Acetaminophen 10/325 mg Tablet PO PRN ×2 (17:12→21:28)
[2021-12-05] MEDS ORDERED: Ketorolac Tromethamine 30 MG/ML VIAL IVP PRN (20:07)
[2021-12-05] MEDS: CEFAZOLIN 2 GM in Sodium Chloride 0.9% 100 ML IVPB SCH (21:32)
[2021-12-05] MEDS ORDERED: metFORMIN 500 MG TAB PO SCH (22:15)
[2021-12-05] MEDS ORDERED: HumaLOG 300 UNITS/3 ML VIAL SC PRN (22:32)
[2021-12-05] MEDS ORDERED: Dextrose 5% in Water 1,000 ML IV PRN (22:32)
[2021-12-05] MEDS ORDERED: Dextrose 50% Abboject 50 ML SYRINGE SLOW IVP PRN (22:32)
[2021-12-05 23:23] LABS: Anion Gap 19 mmol/L (10-20); BUN (Urea Nitrogen) 16 mg/dL (8.4-25.7); Calc. Creatinine Clearance 114 mL/min (70-130); Calcium 8.9 mg/dL (7.8-10.44); Carbon Dioxide 20 mmol/L (22-29); Chloride 100 mmol/L (98-107); Glucose 407 mg/dL (70-105); Potassium 4.6 mmol/L (3.5-5.1); Sodium 134 mmol/L (136-145)
[2021-12-05] MEDS ORDERED: tiZANidine HCl 4 MG TAB PO PRN (23:25)
[2021-12-05] MEDS ORDERED: HYDROmorphone 2 MG TAB PO PRN (23:25)
[2021-12-05] MEDS ORDERED: Nitroglycerin 0.4 MG TAB (25 Tab Bottle) SL PRN (23:25)
[2021-12-06] MEDS: Insulin Glargine 30 UNITS/0.3 ML VIAL SC SCH ×2 (01:25→05:45)
[2021-12-06] MEDS: HYDROcodone/Acetaminophen 10/325 mg Tablet PO PRN ×2 (01:27→05:41)
[2021-12-06] MEDS: CEFAZOLIN 2 GM in Sodium Chloride 0.9% 100 ML IVPB SCH (05:32)
[2021-12-06] MEDS ORDERED: Levothyroxine Sodium 25 MCG TAB PO SCH (06:00)
[2021-12-06] MEDS ORDERED: Levothyroxine Sodium 112 MCG TAB PO SCH (06:00)
[2021-12-06] MEDS ORDERED: Glimepiride 4 MG TAB PO SCH ×2 (07:30→08:00)
[2021-12-06] MEDS ORDERED: metFORMIN 500 MG TAB PO SCH (08:00)
[2021-12-06] MEDS ORDERED: metFORMIN XR 500 MG TAB PO SCH (08:00)
[2021-12-06 08:30] VITALS: BP 124/80; TEMP 98.4
[2021-12-06] MEDS ORDERED: Aripiprazole 2 MG TAB PO SCH (09:00)
[2021-12-06] MEDS ORDERED: Rosuvastatin 20 MG TAB PO SCH (09:00)
[2021-12-06] MEDS ORDERED: Gabapentin 300 MG CAP PO SCH (09:00)
[2021-12-06] MEDS ORDERED: Venlafaxine HCl XR 150 MG CAP PO SCH (09:00)
[2021-12-06] MEDS ORDERED: Atenolol 50 MG TAB PO SCH (09:00)
[2021-12-06] MEDS ORDERED: Clopidogrel Bisulfate 75 MG TAB PO SCH (09:00)
[2021-12-06] MEDS ORDERED: Lisinopril 20 MG TAB PO SCH (09:00)
[2021-12-06] MEDS ORDERED: Aspirin 81 mg Enteric Coated Tablet PO SCH (09:00)
[2021-12-06] MEDS ORDERED: Venlafaxine HCl XR 75 MG CAP PO SCH (09:00)
[2021-12-06] MEDS ORDERED: Amlodipine 10 MG TAB PO SCH (09:00)
== END 2021-12-06 08:55 | disposition home or self-care (01) | DRG 489 ==
LOC: SURG B 17:38
PROVIDERS: ADMIT Orthopaedic Surgery; ATTEND Orthopaedic Surgery
PROC: 0S9C0ZZ Drainage of Right Knee Joint, Open Approach (ICD-10-PCS; principal; 2021-12-05)
PROC: 0YQFXZZ Repair Right Knee Region, External Approach (ICD-10-PCS; 2021-12-05)
DX: T87.81 Dehiscence of amputation stump (principal); Y83.8 Other surgical procedures as the cause of abnormal reaction of the patient, or of later complication, without mention of misadventure at the time of the procedure; Z20.822 Contact with and (suspected) exposure to COVID-19; I10 Essential (primary) hypertension; E66.9 Obesity, unspecified; I25.10 Atherosclerotic heart disease of native coronary artery without angina pectoris; E11.51 Type 2 diabetes mellitus with diabetic peripheral angiopathy without gangrene; E78.2 Mixed hyperlipidemia; E11.65 Type 2 diabetes mellitus with hyperglycemia; E03.9 Hypothyroidism, unspecified; I25.2 Old myocardial infarction; Z89.611 Acquired absence of right leg above knee; Z68.35 Body mass index [BMI] 35.0-35.9, adult; Z79.890 Hormone replacement therapy; Z79.899 Other long term (current) drug therapy
CPT/HCPCS: 36415; 36416; 80048; 90714; J1100; J1815; J1885; J2270; J2405; J2704; J3010; J3490; U0002

== ENCOUNTER 2022-08-16 05:37 | Inpatient (IN) | payer BC ==
[2022-08-13 12:39] VITALS: BMI 41.3
[2022-08-16] MEDS ORDERED: Sodium Chloride 0.9% 100 ML ONE ×2 (06:01→06:46)
[2022-08-16] MEDS ORDERED: Tranexamic Acid 1,000 MG/10 ML VIAL ONE (06:01)
[2022-08-16] MEDS ORDERED: VANCOMYCIN 2 GRAM/500 ML BAG 2 GM in Premix Bag 1 BAG IVPB SCH (06:15)
[2022-08-16] MEDS ORDERED: Bupivacaine PF 0.5% 30 ML VIAL ONE ×2 (06:31→06:35)
[2022-08-16] MEDS ORDERED: Fentanyl 100 MCG/2 ML VIAL ONE ×3 (06:34→09:22)
[2022-08-16] MEDS ORDERED: Lidocaine 1% (PF) 30 ML VIAL ONE (06:34)
[2022-08-16] MEDS ORDERED: Midazolam HCl 2 mg/2 ml Vial ONE (06:34)
[2022-08-16] MEDS ORDERED: EPINEPHrine 1 MG/ML AMP ONE (06:35)
[2022-08-16] MEDS ORDERED: Ondansetron PF 4 MG/2 ML Vial ONE (06:40)
[2022-08-16] MEDS ORDERED: Ketorolac Tromethamine 30 MG/ML VIAL ONE (06:40)
[2022-08-16] MEDS ORDERED: Lidocaine 1% PF 5 ML VIAL ONE (06:40)
[2022-08-16] MEDS ORDERED: PROPOFOL 200 MG/20 ML VIAL ONE (06:40)
[2022-08-16] MEDS ORDERED: CEFAZOLIN 2 GM VIAL ONE (06:46)
[2022-08-16] MEDS ORDERED: fentaNYL PF 100 MCG/2 ML SYRINGE ONE (07:01)
[2022-08-16] MEDS ORDERED: Ondansetron PF 4 MG/2 ML Vial IVP PRN ×2 (07:05→07:30)
[2022-08-16] MEDS ORDERED: Zolpidem Tartrate 5 MG TAB PO PRN ×2 (07:05→07:30)
[2022-08-16] MEDS ORDERED: diphenhydrAMINE 25 MG CAP PO PRN (07:05)
[2022-08-16] MEDS ORDERED: Acetaminophen 325 MG TAB PO PRN (07:05)
[2022-08-16] MEDS ORDERED: Fentanyl 100 MCG/2 ML VIAL SLOW IVP PRN ×2 (07:05)
[2022-08-16] MEDS ORDERED: Promethazine HCl 25 MG/ML VIAL IM PRN ×3 (07:05→08:51)
[2022-08-16] MEDS ORDERED: Vancomycin 1 GM VIAL ONE (07:08)
[2022-08-16] MEDS ORDERED: traZODone HCl 50 MG TAB PO PRN ×2 (07:09→07:39)
[2022-08-16] MEDS ORDERED: Nitroglycerin 0.4 MG TAB (25 Tab Bottle) SL PRN (07:09)
[2022-08-16] MEDS ORDERED: Non-Formulary Item 1 EACH (Tizanidine Hcl [Tizanidine Hcl] 4 MG Capsule) PO PRN (07:09)
[2022-08-16 07:14] LABS: SARS-CoV-2 NAA Rapid Test Not Detected (NotDetected)
[2022-08-16] MEDS ORDERED: Fentanyl 100 MCG/2 ML VIAL IV PRN (07:20)
[2022-08-16] MEDS ORDERED: Ropivacaine 0.2% 550 ML 550 ML NERVE BLCK SCH (07:30)
[2022-08-16] MEDS ORDERED: HYDROcodone/Acetaminophen 10/325 mg Tablet PO PRN ×2 (07:30)
[2022-08-16] MEDS ORDERED: traMADol HCl 50 MG TAB PO PRN ×2 (07:30)
[2022-08-16] MEDS ORDERED: PACU-Morphine 4MG/ML VIAL SLOW IVP PRN (08:51)
[2022-08-16] MEDS ORDERED: Ondansetron HCl/PF 4 MG/2 ML Vial IVP PRN (08:51)
[2022-08-16] MEDS ORDERED: HYDROmorphone 2 MG/ML VIAL SLOW IVP PRN (08:51)
[2022-08-16] MEDS ORDERED: Non-Formulary Item 1 EACH (Pregabalin [Lyrica] 150 MG Capsule) PO SCH (09:00)
[2022-08-16] MEDS ORDERED: Non-Formulary Item 1 EACH (Levothyroxine Sodium [Levothyroxine] 137 MCG Capsule) PO SCH (09:00)
[2022-08-16] MEDS ORDERED: Non-Formulary Item 1 EACH (Lisinopril [Lisinopril] 40 MG Tablet) PO SCH (09:00)
[2022-08-16] MEDS ORDERED: Venlafaxine HCl XR 150 MG CAP PO SCH (09:00)
[2022-08-16] MEDS ORDERED: Non-Formulary Item 1 EACH (Semaglutide [Ozempic] 2 MG/0.75 ML Pen.Injctr) SQ SCH (09:00)
[2022-08-16] MEDS ORDERED: Non-Formulary Item 1 EACH (Atenolol [Atenolol] 100 MG Tablet) PO SCH (09:00)
[2022-08-16] MEDS: Venlafaxine HCl XR 75 MG CAP PO SCH (09:55)
[2022-08-16] MEDS: Pregabalin 75 MG CAP PO SCH ×3 (09:55→21:09)
[2022-08-16] MEDS: Aspirin 81 mg Enteric Coated Tablet PO SCH ×2 (10:15→21:10)
[2022-08-16] MEDS: Atenolol 50 MG TAB PO SCH (10:15)
[2022-08-16] MEDS: Amlodipine 10 MG TAB PO SCH (10:15)
[2022-08-16] MEDS: Lisinopril 20 MG TAB PO SCH (10:16)
[2022-08-16] MEDS: Glimepiride 4 MG TAB PO SCH (10:16)
[2022-08-16] MEDS: Ferrous Gluconate 324 MG TAB PO SCH ×2 (10:16→21:08)
[2022-08-16] MEDS: Senokot S 8.6-50 MG TAB PO SCH ×2 (10:17→21:09)
[2022-08-16] MEDS: metFORMIN XR 500 MG TAB PO SCH ×2 (10:17→21:09)
[2022-08-16] MEDS: Rosuvastatin 20 MG TAB PO SCH (10:17)
[2022-08-16] MEDS: Multivitamin W/ Minerals 1 TAB PO SCH (10:17)
[2022-08-16] MEDS: Sodium Chloride 0.9% 1,000 ML IV SCH ×2 (10:59→18:44)
[2022-08-16] MEDS ORDERED: Dextrose 50% Abboject 50 ML SYRINGE SLOW IVP PRN (11:36)
[2022-08-16] MEDS ORDERED: Dextrose 5% in Water 1,000 ML IV PRN (11:36)
[2022-08-16] MEDS ORDERED: Insulin Regular 300 UNITS/3 ML VIAL SC PRN (11:36)
[2022-08-16] MEDS ORDERED: HumaLOG 300 UNITS/3 ML VIAL SC PRN (11:36)
[2022-08-16] MEDS ORDERED: Ketorolac Tromethamine 30 MG/ML VIAL IVP SCH (14:00)
[2022-08-16] MEDS: Ketorolac Tromethamine 30 MG/ML VIAL IVP SCH ×2 (14:06→18:51)
[2022-08-16] MEDS: CEFAZOLIN 2 GM in Sodium Chloride 0.9% 100 ML IVPB SCH ×2 (14:25→21:08)
[2022-08-16] MEDS ORDERED: Vancomycin HCl 1.5 GM in Sodium Chloride 0.9% 250 ML 300 ML IVPB SCH (18:00)
[2022-08-16] MEDS ORDERED: Vancomycin 1.5 GRAM/300 ML BAG 1.5 GM in Premix Bag 1 BAG IVPB SCH (18:00)
[2022-08-16] MEDS ORDERED: Non-Formulary Item 1 EACH (Insulin Degludec [Tresiba Flextouch U-100] 100 UNIT/ML Insuln. SQ SCH (21:00)
[2022-08-16] MEDS ORDERED: Aripiprazole 2 MG TAB PO SCH (21:00)
[2022-08-16] MEDS: Tamsulosin HCl 0.4 MG CAP PO SCH (21:08)
[2022-08-16] MEDS: Insulin Glargine 30 UNITS/0.3 ML VIAL SC SCH (21:36)
[2022-08-17] MEDS: tiZANidine HCl 4 MG TAB PO PRN (00:27)
[2022-08-17] MEDS: Ketorolac Tromethamine 30 MG/ML VIAL IVP SCH ×5 (00:27→23:33)
[2022-08-17] MEDS: oxyCODONE 5 MG TAB PO PRN (00:29)
[2022-08-17 04:57] LABS: Hemoglobin 12.9 g/dL (14.0-18.0); Mean Corpuscular HGB CONC 33.5 g/dL (32.0-36.0); Mean Corpuscular Hemoglobin 30.7 pg (27.0-31.0); Mean Corpuscular Volume 91.4 fl (78.0-98.0); Platelet Count 138 10x3/uL (130-400); RBC Distribution Width 11.9 % (11.5-14.5); Red Blood Cell (RBC) Count 4.21 mill/uL (4.70-6.10); White Blood Cell (WBC) Count 5.3 10x3/uL (4.8-10.8)
[2022-08-17] MEDS: Sodium Chloride 0.9% 1,000 ML IV SCH ×3 (05:46→23:34)
[2022-08-17] MEDS: Levothyroxine Sodium 25 MCG TAB PO SCH (05:48)
[2022-08-17] MEDS: Levothyroxine Sodium 112 MCG TAB PO SCH (05:48)
[2022-08-17] MEDS ORDERED: Aspirin 81 mg Enteric Coated Tablet PO SCH (09:00)
[2022-08-17] MEDS: Amitriptyline HCl 25 MG TAB PO SCH (10:32)
[2022-08-17] MEDS: Amlodipine 10 MG TAB PO SCH (10:33)
[2022-08-17] MEDS: Aspirin 81 mg Enteric Coated Tablet PO SCH ×2 (10:34→20:56)
[2022-08-17] MEDS: Atenolol 50 MG TAB PO SCH (10:34)
[2022-08-17] MEDS: Fish Oil 1,000 MG CAP PO SCH (10:35)
[2022-08-17] MEDS: Ferrous Gluconate 324 MG TAB PO SCH ×2 (10:35→20:56)
[2022-08-17] MEDS: Lisinopril 20 MG TAB PO SCH (10:36)
[2022-08-17] MEDS: Glimepiride 4 MG TAB PO SCH (10:36)
[2022-08-17] MEDS: Multivitamin W/ Minerals 1 TAB PO SCH (10:37)
[2022-08-17] MEDS: Pregabalin 75 MG CAP PO SCH ×3 (10:37→20:55)
[2022-08-17] MEDS: metFORMIN XR 500 MG TAB PO SCH ×2 (10:37→20:55)
[2022-08-17] MEDS: Senokot S 8.6-50 MG TAB PO SCH ×2 (10:38→20:56)
[2022-08-17] MEDS: Rosuvastatin 20 MG TAB PO SCH (10:38)
[2022-08-17] MEDS: Venlafaxine HCl XR 75 MG CAP PO SCH (10:39)
[2022-08-17] MEDS: Tamsulosin HCl 0.4 MG CAP PO SCH (20:56)
[2022-08-17] MEDS ORDERED: SEMAGLUTIDE 2 MG/0.75 ML SC SCH (21:00)
[2022-08-17] MEDS: Insulin Glargine 30 UNITS/0.3 ML VIAL SC SCH (21:13)
[2022-08-18] MEDS: Ketorolac Tromethamine 30 MG/ML VIAL IVP SCH (05:21)
[2022-08-18] MEDS: Levothyroxine Sodium 25 MCG TAB PO SCH (05:21)
[2022-08-18] MEDS: Levothyroxine Sodium 112 MCG TAB PO SCH (05:21)
[2022-08-18 07:33] LABS: #Eosinphils 0.3 thou/uL (0.0-0.7); #Lymphocytes 1.1 thou/uL (1.20-3.40); #Monocytes 0.6 thou/uL (0.11-0.59); #Neutrophils 2.5 thou/uL (1.40-6.50); %Basophils 0.3 % (0.0-1.0); %Eosinophils 6.5 % (0.0-10.0); %Lymphocytes 24.1 % (21.0-51.0); %Monocytes 14.2 % (0.0-10.0); %Neutrophils 54.9 % (42.0-75.0); Hemoglobin 12.4 g/dL (14.0-18.0); Mean Corpuscular HGB CONC 33.6 g/dL (32.0-36.0); Mean Corpuscular Hemoglobin 31.2 pg (27.0-31.0); Mean Platelet Volume 8.7 fL (7.4-10.4); Platelet Count 118 10x3/uL (130-400); RBC Distribution Width 11.9 % (11.5-14.5); Red Blood Cell (RBC) Count 3.96 mill/uL (4.70-6.10); White Blood Cell (WBC) Count 4.5 10x3/uL (4.8-10.8)
[2022-08-18 07:44] LABS: Anion Gap 12 mmol/L (10-20); BUN (Urea Nitrogen) 21 mg/dL (8.4-25.7); Calc. Creatinine Clearance 156 mL/min (70-130); Calcium 8.7 mg/dL (7.8-10.44); Carbon Dioxide 27 mmol/L (22-29); Chloride 98 mmol/L (98-107); Estimated GFR 93; Glucose 177 mg/dL (70-105); Potassium 4.2 mmol/L (3.5-5.1); Sodium 133 mmol/L (136-145)
[2022-08-18] MEDS: Glimepiride 4 MG TAB PO SCH (09:16)
[2022-08-18] MEDS: Ferrous Gluconate 324 MG TAB PO SCH ×2 (09:16→22:20)
[2022-08-18] MEDS: Aspirin 81 mg Enteric Coated Tablet PO SCH ×2 (09:17→22:20)
[2022-08-18] MEDS: Pregabalin 75 MG CAP PO SCH ×3 (09:17→22:20)
[2022-08-18] MEDS: Rosuvastatin 20 MG TAB PO SCH (09:18)
[2022-08-18] MEDS: Lisinopril 20 MG TAB PO SCH (09:18)
[2022-08-18] MEDS: metFORMIN XR 500 MG TAB PO SCH ×2 (09:18→22:19)
[2022-08-18] MEDS: Senokot S 8.6-50 MG TAB PO SCH ×2 (09:18→22:19)
[2022-08-18] MEDS: Atenolol 50 MG TAB PO SCH (09:19)
[2022-08-18] MEDS: Amitriptyline HCl 25 MG TAB PO SCH (09:19)
[2022-08-18] MEDS: Amlodipine 10 MG TAB PO SCH (09:19)
[2022-08-18] MEDS: Venlafaxine HCl XR 75 MG CAP PO SCH (09:27)
[2022-08-18] MEDS: Multivitamin W/ Minerals 1 TAB PO SCH (09:30)
[2022-08-18] MEDS: Fish Oil 1,000 MG CAP PO SCH (09:30)
[2022-08-18] MEDS: Sodium Chloride 0.9% 1,000 ML IV SCH ×2 (11:54→22:09)
[2022-08-18] MEDS: oxyCODONE 5 MG TAB PO PRN ×2 (15:12→22:16)
[2022-08-18] MEDS: Tamsulosin HCl 0.4 MG CAP PO SCH (22:17)
[2022-08-18] MEDS: tiZANidine HCl 4 MG TAB PO PRN (22:17)
[2022-08-18] MEDS: Insulin Glargine 30 UNITS/0.3 ML VIAL SC SCH (22:22)
[2022-08-19] MEDS: Sodium Chloride 0.9% 1,000 ML IV SCH ×2 (06:34→14:29)
[2022-08-19] MEDS: Levothyroxine Sodium 25 MCG TAB PO SCH (06:35)
[2022-08-19] MEDS: Levothyroxine Sodium 112 MCG TAB PO SCH (06:35)
[2022-08-19 07:05] LABS: Hemoglobin 12.6 g/dL (14.0-18.0); Mean Corpuscular HGB CONC 34.4 g/dL (32.0-36.0); Mean Corpuscular Hemoglobin 31.9 pg (27.0-31.0); Mean Corpuscular Volume 92.6 fl (78.0-98.0); Mean Platelet Volume 8.9 fL (7.4-10.4); Platelet Count 147 10x3/uL (130-400); RBC Distribution Width 11.9 % (11.5-14.5); Red Blood Cell (RBC) Count 3.95 mill/uL (4.70-6.10); White Blood Cell (WBC) Count 4.6 10x3/uL (4.8-10.8)
[2022-08-19 07:21] LABS: Anion Gap 14 mmol/L (10-20); BUN (Urea Nitrogen) 10 mg/dL (8.4-25.7); Calc. Creatinine Clearance 192 mL/min (70-130); Calcium 9.5 mg/dL (7.8-10.44); Carbon Dioxide 26 mmol/L (22-29); Chloride 98 mmol/L (98-107); Estimated GFR 106; Glucose 152 mg/dL (70-105); Potassium 4.2 mmol/L (3.5-5.1); Sodium 134 mmol/L (136-145)
[2022-08-19 07:39] LABS: Band 2 % (5-11); Eosinophils 3 % (0-10); Lymphocytes 27 % (21-51); MDiff Complete? YES; Monocytes 13 % (0-10); Neutrophil 54 % (42-75); RBC Morphology Normal; Reactive Lymphocytes 1 % (0-10)
[2022-08-19] MEDS: oxyCODONE 5 MG TAB PO PRN ×2 (09:20→13:42)
[2022-08-19] MEDS: Fish Oil 1,000 MG CAP PO SCH (09:21)
[2022-08-19] MEDS: metFORMIN XR 500 MG TAB PO SCH (09:21)
[2022-08-19] MEDS: Pregabalin 75 MG CAP PO SCH ×2 (09:22→14:27)
[2022-08-19] MEDS: Glimepiride 4 MG TAB PO SCH (09:22)
[2022-08-19] MEDS: Atenolol 50 MG TAB PO SCH (09:22)
[2022-08-19] MEDS: Venlafaxine HCl XR 75 MG CAP PO SCH (09:24)
[2022-08-19] MEDS: Ferrous Gluconate 324 MG TAB PO SCH (09:25)
[2022-08-19] MEDS: Amlodipine 10 MG TAB PO SCH (09:25)
[2022-08-19] MEDS: Multivitamin W/ Minerals 1 TAB PO SCH (09:26)
[2022-08-19] MEDS: Aspirin 81 mg Enteric Coated Tablet PO SCH (09:26)
[2022-08-19] MEDS: Rosuvastatin 20 MG TAB PO SCH (09:26)
[2022-08-19] MEDS: Amitriptyline HCl 25 MG TAB PO SCH (09:26)
[2022-08-19] MEDS: Lisinopril 20 MG TAB PO SCH (09:26)
[2022-08-19] MEDS: Senokot S 8.6-50 MG TAB PO SCH (09:26)
[2022-08-19 12:02] VITALS: TEMP 98.9
[2022-08-19] MEDS: Morphine 4 MG/ML VIAL ONE ×2 (12:32→13:02)
[2022-08-19 13:08] VITALS: BP 143/82
== END 2022-08-19 17:05 | DRG 470 ==
LOC: SDC 05:37 → INTOOBSV 10:13 → SJJU 10:13 → OBSVTOIN 08-18 15:59
PROVIDERS: ADMIT Orthopaedic Surgery; ATTEND Hospitalist
PROC: 0SRD0J9 Replacement of Left Knee Joint with Synthetic Substitute, Cemented, Open Approach (ICD-10-PCS; principal; 2022-08-16)
DX: M17.12 Unilateral primary osteoarthritis, left knee (principal); Z20.822 Contact with and (suspected) exposure to COVID-19; I10 Essential (primary) hypertension; I25.10 Atherosclerotic heart disease of native coronary artery without angina pectoris; E11.65 Type 2 diabetes mellitus with hyperglycemia; Z95.5 Presence of coronary angioplasty implant and graft; Z79.4 Long term (current) use of insulin; I25.2 Old myocardial infarction; Z79.82 Long term (current) use of aspirin; Z79.84 Long term (current) use of oral hypoglycemic drugs; Z79.890 Hormone replacement therapy; Z79.899 Other long term (current) drug therapy
CPT/HCPCS: 36415; 36416; 80048; 85025; 85027; 96374; 96375; 96376; A4306; C1713; C1776; G0378; J0171; J1815; J1885; J2001; J2250; J2270; J2405; J2704; J2795; J3010; J3370; J3490; S0020; U0002

== ENCOUNTER 2023-06-02 13:29 | Outpatient (CLI) | payer BC | END 2023-06-02 13:30 | disposition home or self-care (01) | LOC: BICULT 13:29 | PROVIDERS: ATTEND Orthopaedic Surgery | DX: M79.662 Pain in left lower leg (principal) ==

== ENCOUNTER 2023-06-03 12:30 | Outpatient (CLI) | payer BC | END 2023-06-03 12:31 | disposition home or self-care (01) | LOC: SCSMRI 12:30 | PROVIDERS: ATTEND Specialist | DX: M47.24 Other spondylosis with radiculopathy, thoracic region (principal) | CPT/HCPCS: 72146 ==

== ENCOUNTER 2024-05-25 09:46 | Inpatient (IN) | payer MEDICARE, OTHER ==
[2024-05-25 10:52] LABS: #Basophils Less than 0.03 10x3/uL (0.0-0.2); %Basophils 0.5 % (0.0-1.0); %Eosinophils 4.7 % (0.0-10.0); %Lymphocytes 37.2 % (21.0-51.0); %Neutrophils 45.4 % (42.0-75.0); Hematocrit 47.2 % (42.0-52.0); Hemoglobin 16.7 g/dL (14.0-18.0); Mean Corpuscular HGB CONC 35.4 g/dL (32.0-36.0); Mean Corpuscular Hemoglobin 30.6 pg (27.0-31.0); Mean Corpuscular Volume 86.6 fL (78.0-98.0); Mean Platelet Volume 10.7 fL (7.4-10.4); Platelet Count 164 10x3/uL (130-400); RBC Distribution Width 12.3 % (11.5-14.5); Red Blood Cell (RBC) Count 5.45 mill/uL (4.70-6.10)
[2024-05-25] MEDS ORDERED: Morphine 2 MG/ML VIAL ONE (11:04)
[2024-05-25] MEDS ORDERED: Nitroglycerin 0.4 MG TAB 1 EACH ONE ×2 (11:04→11:06)
[2024-05-25] MEDS ORDERED: Aspirin Chewable 81 MG TAB ONE (11:04)
[2024-05-25] MEDS ORDERED: Nitroglycerin 0.4mg/Hour PATCH ONE (11:05)
[2024-05-25 11:31] LABS: ALT (SGPT) 40 U/L (8-55); AST (SGOT) 27 U/L (5-34); Albumin 4.1 g/dL (3.5-5.0); Alkaline Phosphatase 64 U/L (40-110); Anion Gap 14 mmol/L (10-20); BUN (Urea Nitrogen) 14 mg/dL (8.4-25.7); Bilirubin, Total 1.1 mg/dL (0.2-1.2); Calc. Creatinine Clearance 0 mL/min (70-130); Calcium 8.9 mg/dL (7.8-10.44); Carbon Dioxide 29 mmol/L (22-29); Chloride 98 mmol/L (98-107); Estimated GFR 101; Globulin 3.4 g/dL (2.4-3.5); Glucose 232 mg/dL (70-105); Lipase 22 U/L (8-78); Potassium 3.6 mmol/L (3.5-5.1); Protein, Total 7.5 g/dL (6.0-8.3); Sodium 137 mmol/L (136-145)
[2024-05-25 11:56] LABS: Troponin I Less than 0.010 ng/mL (< 0.028)
[2024-05-25] MEDS ORDERED: Nitroglycerin 2% Ointment 1 INCH/1 GM Packet ONE (12:26)
[2024-05-25] MEDS ORDERED: Calcium Carbonate 500 MG ChewTAB PO PRN (12:37)
[2024-05-25] MEDS ORDERED: Ondansetron PF 4 MG/2 ML Vial IVP PRN (12:37)
[2024-05-25] MEDS ORDERED: Senokot S 8.6-50 MG TAB PO PRN (12:37)
[2024-05-25] MEDS ORDERED: Dextrose 5% in Water 1,000 ML IV PRN (12:43)
[2024-05-25] MEDS ORDERED: Glucagon 1 MG/ML KIT IM PRN (12:43)
[2024-05-25] MEDS ORDERED: Insulin Lispro 100 UNIT/ML 10 ML VIAL SC PRN ×2 (12:43)
[2024-05-25 14:11] VITALS: BMI 42.6
[2024-05-25] MEDS ORDERED: tiZANidine HCl 4 MG TAB PO PRN (15:16)
[2024-05-25] MEDS ORDERED: Pregabalin 75 MG CAP ONE (15:55)
[2024-05-25] MEDS: Sodium Chloride 0.9% 1,000 ML IV SCH (16:04)
[2024-05-25] MEDS: Pregabalin 75 MG CAP PO SCH (16:09)
[2024-05-25 17:45] LABS: Troponin I Less than 0.010 ng/mL (< 0.028)
[2024-05-25] MEDS: Morphine 2 MG/ML VIAL SLOW IVP PRN (19:11)
[2024-05-25] MEDS ORDERED: Insulin Glargine 30 UNITS/0.3 ML VIAL SC SCH (21:00)
[2024-05-25] MEDS ORDERED: Aspirin 81 mg Enteric Coated Tablet PO SCH (21:00)
[2024-05-25 21:31] LABS: Troponin I Less than 0.010 ng/mL (< 0.028)
[2024-05-25] MEDS: Aripiprazole 2 MG TAB PO SCH (23:25)
[2024-05-25] MEDS: Tamsulosin HCl 0.4 MG CAP PO SCH (23:26)
[2024-05-25] MEDS: Ranolazine ER 500 MG TAB PO SCH (23:26)
[2024-05-25] MEDS: Valsartan 80 MG TAB PO SCH (23:27)
[2024-05-25] MEDS: Insulin Glargine 30 UNITS/0.3 ML VIAL SC SCH (23:28)
[2024-05-26 04:04] LABS: Hemoglobin A1c 9.3 % (4.0-6.0)
[2024-05-26 04:07] LABS: #Basophils Less than 0.03 10x3/uL (0.0-0.2); %Basophils 0.4 % (0.0-1.0); %Lymphocytes 30.6 % (21.0-51.0); %Monocytes 9.1 % (0.0-10.0); %Neutrophils 56.7 % (42.0-75.0); Hematocrit 46.2 % (42.0-52.0); Hemoglobin 15.9 g/dL (14.0-18.0); Mean Corpuscular HGB CONC 34.4 g/dL (32.0-36.0); Mean Corpuscular Hemoglobin 30.8 pg (27.0-31.0); Mean Corpuscular Volume 89.5 fL (78.0-98.0); Mean Platelet Volume 11.1 fL (7.4-10.4); Platelet Count 172 10x3/uL (130-400); RBC Distribution Width 12.3 % (11.5-14.5); Red Blood Cell (RBC) Count 5.16 mill/uL (4.70-6.10)
[2024-05-26 04:25] LABS: ALT (SGPT) 38 U/L (8-55); AST (SGOT) 27 U/L (5-34); Albumin 3.6 g/dL (3.5-5.0); Alkaline Phosphatase 56 U/L (40-110); Anion Gap 15 mmol/L (10-20); BUN (Urea Nitrogen) 19 mg/dL (8.4-25.7); Calc. Creatinine Clearance 173 mL/min (70-130); Calcium 8.8 mg/dL (7.8-10.44); Carbon Dioxide 22 mmol/L (22-29); Cardiac Risk 3.5 (Less than 4.5); Chloride 103 mmol/L (98-107); Cholesterol 126 mg/dl (< 200 Desired); Estimated GFR 98; Globulin 3.2 g/dL (2.4-3.5); Glucose 229 mg/dL (70-105); HDL Cholesterol 36 mg/dL (>60 Neg Risk); LDL Cholesterol, Calculated 17 mg/dL; Potassium 3.8 mmol/L (3.5-5.1); Protein, Total 6.8 g/dL (6.0-8.3); Sodium 136 mmol/L (136-145); Triglycerides 363 mg/dL (Less than 150)
[2024-05-26] MEDS: Levothyroxine 150 MCG TAB PO SCH (05:18)
[2024-05-26] MEDS ORDERED: Lisinopril 20 MG TAB PO SCH (09:00)
[2024-05-26] MEDS: oxyCODONE 5 MG TAB PO PRN (10:54)
[2024-05-26] MEDS: Venlafaxine HCl XR 75 MG CAP PO SCH (10:55)
[2024-05-26] MEDS: Aspirin Chewable 81 MG TAB PO SCH (10:58)
[2024-05-26] MEDS: Rosuvastatin 20 MG TAB PO SCH (10:58)
[2024-05-26] MEDS: Clopidogrel Bisulfate 75 MG TAB PO SCH (10:58)
[2024-05-26] MEDS: Ranolazine ER 500 MG TAB PO SCH (10:58)
[2024-05-26] MEDS: Atenolol 50 MG TAB PO SCH (11:02)
[2024-05-26] MEDS: Amlodipine 10 MG TAB PO SCH (11:03)
[2024-05-26] MEDS: Enoxaparin 40 MG (0.4 mL) SYRINGE SC SCH (11:08)
[2024-05-26] MEDS: Morphine 2 MG/ML VIAL SLOW IVP PRN (15:42)
[2024-05-26] MEDS: Carvedilol 25 MG TAB PO SCH (21:59)
[2024-05-26] MEDS: Melatonin 3 MG TAB PO SCH (22:00)
[2024-05-26] MEDS: Tamsulosin HCl 0.4 MG CAP PO SCH (22:01)
[2024-05-26] MEDS: Valsartan 80 MG TAB PO SCH (22:02)
[2024-05-27 04:08] LABS: Amphetamine Not Detected (NotDetected); Barbiturates Screen Not Detected (NotDetected); Benzodiazepine Screen Not Detected (NotDetected); Cocaine Metabolite Screen Not Detected (NotDetected); Methadone Not Detected (NotDetected); Methamphetamine Not Detected (NotDetected); Opiate Screen Detected (NotDetected); Oxycodone Screen Detected (NotDetected); Phencyclidine (PCP) Not Detected (NotDetected); THC/Cannabinoid Screen Not Detected (NotDetected); Tricyclic Screen Not Detected (NotDetected)
[2024-05-27 05:16] LABS: #Basophils Less than 0.03 10x3/uL (0.0-0.2); %Basophils 0.5 % (0.0-1.0); %Lymphocytes 34.3 % (21.0-51.0); %Neutrophils 52.9 % (42.0-75.0); Hematocrit 43.2 % (42.0-52.0); Hemoglobin 15.1 g/dL (14.0-18.0); Mean Corpuscular Volume 88.7 fL (78.0-98.0); Mean Platelet Volume 11.1 fL (7.4-10.4); Platelet Count 153 10x3/uL (130-400); RBC Distribution Width 12.2 % (11.5-14.5); Red Blood Cell (RBC) Count 4.87 mill/uL (4.70-6.10)
[2024-05-27 05:29] LABS: Anion Gap 14 mmol/L (10-20); BUN (Urea Nitrogen) 10 mg/dL (8.4-25.7); Calc. Creatinine Clearance 239 mL/min (70-130); Calcium 8.6 mg/dL (7.8-10.44); Carbon Dioxide 24 mmol/L (22-29); Chloride 102 mmol/L (98-107); Estimated GFR 111; Glucose 81 mg/dL (70-105); Potassium 3.9 mmol/L (3.5-5.1); Sodium 136 mmol/L (136-145)
[2024-05-27] MEDS: Ezetimibe 10 MG TAB PO SCH (10:35)
[2024-05-27] MEDS ORDERED: Bisacodyl 5 MG TAB PO PRN (11:43)
[2024-05-27] MEDS ORDERED: Milk Of Magnesia 30 ML UDCUP PO PRN (11:43)
[2024-05-27] MEDS ORDERED: Iopamidol-370 76% 500 ML MDV (1 ML CHARGE) ONE ×2 (12:00→12:01)
[2024-05-27] MEDS: Nitroglycerin 0.4 MG TAB (25 Tab Bottle) SL PRN (20:05)
[2024-05-27] MEDS: Morphine 2 MG/ML VIAL SLOW IVP PRN (20:08)
[2024-05-28 05:29] LABS: Anion Gap 11 mmol/L (10-20); BUN (Urea Nitrogen) 11 mg/dL (8.4-25.7); Calc. Creatinine Clearance 243 mL/min (70-130); Calcium 8.4 mg/dL (7.8-10.44); Carbon Dioxide 25 mmol/L (22-29); Chloride 104 mmol/L (98-107); Estimated GFR 111; Glucose 86 mg/dL (70-105); Potassium 3.6 mmol/L (3.5-5.1); Sodium 136 mmol/L (136-145)
[2024-05-28] MEDS ORDERED: Communication Order-Pharmacy FS SCH (06:00)
[2024-05-28] MEDS: Dextrose 50% Abboject 50 ML SYRINGE SLOW IVP PRN (06:36)
[2024-05-28] MEDS ORDERED: Midazolam HCl 2 mg/2 ml Vial ONE (09:13)
[2024-05-28] MEDS ORDERED: Verapamil 5 MG/2 ML VIAL ONE (09:13)
[2024-05-28] MEDS ORDERED: Heparin 10,000 UNITS/ 10 ML VIAL ONE (09:13)
[2024-05-28] MEDS ORDERED: fentaNYL 50 mcg/mL 1 mL Vial ONE (09:13)
[2024-05-28] MEDS ORDERED: Nitroglycerin 50 MG/250 ML BOT 250 ML ONE (09:13)
[2024-05-28] MEDS ORDERED: Iopamidol 370 76% 100 ML VIAL ONE (10:27)
[2024-05-28] MEDS ORDERED: Glucagon 1 MG/ML KIT ONE (11:00)
[2024-05-28] MEDS ORDERED: Dextrose 50% Abboject 50 ML SYRINGE ONE (11:09)
[2024-05-28] MEDS ORDERED: Acetaminophen/Codeine 30-300mg Tablet PO PRN (11:28)
[2024-05-28] MEDS ORDERED: Sodium Chloride 0.9% 200 ML IV PRN (11:28)
[2024-05-28] MEDS: Sodium Chloride 0.9% 500 ML IV SCH (11:58)
[2024-05-28 16:37] VITALS: BP 122/71; TEMP 97.1
== END 2024-05-28 17:50 | disposition home or self-care (01) | DRG 287 ==
LOC: ERS 09:46 → SUATTDRO 09:46 → ERHOLD 12:33 → 2NO 18:07
PROVIDERS: ADMIT Internal Medicine; ATTEND Internal Medicine
PROC: 4A023N7 Measurement of Cardiac Sampling and Pressure, Left Heart, Percutaneous Approach (ICD-10-PCS; principal; 2024-05-28)
PROC: B2111ZZ Fluoroscopy of Multiple Coronary Arteries using Low Osmolar Contrast (ICD-10-PCS; 2024-05-28)
PROC: B2151ZZ Fluoroscopy of Left Heart using Low Osmolar Contrast (ICD-10-PCS; 2024-05-28)
DX: R07.89 Other chest pain (principal); I25.110 Atherosclerotic heart disease of native coronary artery with unstable angina pectoris; Z68.41 Body mass index [BMI] 40.0-44.9, adult; I25.5 Ischemic cardiomyopathy; Z79.82 Long term (current) use of aspirin; Z79.899 Other long term (current) drug therapy; I10 Essential (primary) hypertension; E03.9 Hypothyroidism, unspecified; I25.2 Old myocardial infarction; Z98.890 Other specified postprocedural states; E78.5 Hyperlipidemia, unspecified; E66.01 Morbid (severe) obesity due to excess calories; E11.65 Type 2 diabetes mellitus with hyperglycemia; Z79.4 Long term (current) use of insulin; Z89.511 Acquired absence of right leg below knee
CPT/HCPCS: 36415; 36416; 71045; 71275; 80048; 80053; 80061; 80306; 83036; 83690; 84484; 85025; 93005; 93306; 93458; 96374; 99152; C1769; C1894; J1611; J1644; J1815; J2250; J2272; J3010; J7030; J7999; Q9967